=== PATIENT | male | born 1990 | race Caucasian/White ===

== ENCOUNTER 2020-10-01 13:49 | Emergency (ER) | payer SELFPAY ==
[~2020-10-01] VITALS: Ht 180.3 cm; Wt 59.7 kg
--- NOTE | 2020-10-01 14:09 | ED Integumentary General ---
General Chief Complaint: Skin/Wound Problems Stated Complaint: RASH Source: patient History of Present Illness Date Seen by Provider: Oct 01, 2020 Time Seen by Provider: 14:09 Initial Comments 30-year-old male presents with "rash" patient reports his been on and off for about a year. He reports he has little dark black spots near the base of his hair. He states he's been seen in the past and told that this was normal. He is been using her to wash his hands and his hands are very erythematous in his arms. He reports he has similar symptoms in his segura. Sometimes his headache is. Patient denies any systemic complaints. Allergies and Home Medications Allergies Coded Allergies: No Known Drug Allergies (Unverified , 10/01/20) Patient Home Medication List Home Medication List Reviewed: Yes Review of Systems Review of Systems Constitutional: no symptoms reported EENTM: no symptoms reported Respiratory: no symptoms reported Cardiovascular: no symptoms reported Gastrointestinal: no symptoms reported Genitourinary: no symptoms reported Musculoskeletal: no symptoms reported Skin: see HPI Psychiatric/Neurological: No Symptoms Reported Endocrine: No Symptoms Reported Past Yarhomi-Vhytgl-Xbcpql Hx Past Med/Social Hx: Reviewed Nursing Past Med/Soc Hx Patient Social History Recent Foreign Travel: No Contact w/Someone Who Travel: No Physical Exam Vital Signs Vital Signs - First Documented 10/01/20 14:20 Temp 36.9 Pulse 101 Resp 16 B/P (MAP) 129/93 (105) Pulse Ox 97 O2 Delivery Room Air Capillary Refill : General Appearance: WD/WN, no apparent distress Cardiovascular: normal peripheral pulses, regular rate, rhythm Respiratory: lungs clear, no respiratory distress Gastrointestinal: non tender, soft Skin: other (mild erythema on his forearms and hand) Skin Problem Location: other (normal exam outside of some dermatitis from excessive handwashing and harsh soap use) Progress/Results/Core Measures Results/Orders Vital Signs/I&O 10/01/20 14:20 Temp 36.9 Pulse 101 Resp 16 B/P (MAP) 129/93 (105) Pulse Ox 97 O2 Delivery Room Air Progress Progress Note : Progress Note Patient with no acute findings. He was concerned about normal skin findings. After I showed him that my hands have similar findings he did relaxed. I do suspect the patient may have some underlying undiagnosed schizophrenia since he is very anxious and paranoid. I discussed with him that he should go home and use some topical steroids and Benadryl along with some evi dish soap along with a good lotion to help his hands recover from the dermatitis in excess handwashing. Patient stable and being discharged Departure Impression Primary Impression: Dermatitis Disposition: 01 HOME, SELF-CARE Condition: Stable Departure-Patient Inst. Referrals: NO,LOCAL PHYSICIAN (PCP/Family) Primary Care Physician Patient Instructions: Dermatitis Add. Discharge Instructions: Benadryl topical cream to affected area as directed on package Hydrocortisone topical cream twice daily 5 days Wash her hands with Evi dish soap He is a good lotions such as Aveeno or similar lotion All discharge instructions reviewed with patient and/or family. Voiced understanding. EMILY GRACIA DO Oct 01, 2020 14:09
[2020-10-01 14:20] VITALS: BP 129/93
== END 2020-10-01 14:26 | disposition home or self-care (01) ==
LOC: ER FS 13:51
DX: L30.8 Other specified dermatitis (principal)
CPT/HCPCS: 99282

== ENCOUNTER 2021-05-25 20:27 | Emergency (ER) | payer SELFPAY ==
[~2021-05-25] VITALS: Ht 180.3 cm; Wt 64.1 kg
[2021-05-25 20:31] VITALS: BP 132/85
--- NOTE | 2021-05-25 20:34 | ED EENT ---
History of Present Illness General Stated Complaint: SKIN IRRITATION,TOOTH PAIN Source: patient Exam Limitations: no limitations History of Present Illness Date Seen by Provider: May 25, 2021 Time Seen by Provider: 20:34 Initial Comments 30 male presents with chronic skin condition has had for years. Does not have a primary care doctor as he states that he is exhausted trying to get answers. Has never seen a manager product marketing. States that he thinks he has a skin infection because when he put peroxide on his skin it bubbles up. Frequent dry skin, itchy skin. Also states that he needs an antibiotic so that he can have dental work done as the dentist said he needs to be on an antibiotic 1 week before removing a bad tooth. Denies swelling of his jaw or significant pain, fever or chills. Allergies and Home Medications Allergies Coded Allergies: No Known Drug Allergies (Unverified , 10/01/20) Home Medications Cephalexin 500 Mg Tablet, 500 MG PO TID Prescribed by: NICK SZYMANSKI on 05/25/212045 Triamcinolone Acetonide 15 Gm Cream..g., 30 GM TP BID Prescribed by: NICK SZYMANSKI on 05/25/212045 Patient Home Medication List Home Medication List Reviewed: Yes Review of Systems Review of Systems Constitutional: No fever, No malaise, No weakness Eyes: No Symptoms Reported Ears: No Symptoms Reported Nose: no symptoms reported Mouth: denies loose teeth, denies pain; other (bad tooth) Respiratory: no symptoms reported Skin: see HPI, pruritus (and dry skin) Past Fmuygpm-Oduwnr-Gspmkq Hx Past Med/Social Hx: Reviewed Nursing Past Med/Soc Hx Patient Social History Drug of Choice: Marijuana 2nd Hand Smoke Exposure: No Recent Hopitalizations: No Seasonal Allergies Seasonal Allergies: No Past Medical History Surgeries: No Respiratory: No Cardiac: No Neurological: No Genitourinary: No Gastrointestinal: No Musculoskeletal: Yes Arthritis Endocrine: No HEENT: No Cancer: No Psychosocial: No Integumentary: No Blood Disorders: No Physical Exam Vital Signs Vital Signs - First Documented 05/25/21 20:31 Temp 36.3 Pulse 82 Resp 14 B/P (MAP) 132/85 (101) Pulse Ox 99 O2 Delivery Room Air Height, Weight, BMI Height: '" Weight: lbs. oz. kg; 18.00 BMI Method: General Appearance: WD/WN, no apparent distress Mouth/Throat: pharynx normal; No mandibular swelling, No maxillary swelling, No pharynx swelling, No pharynx tenderness, No tongue swollen, No tonsillar exudate, No tonsillar swelling, No trismus, No uvula swelling, No voice changes; other (chronic dental caries without abscess) Neck: non-tender, supple Skin: No ecchymosis, No jaundice, No rash; other (chronic dry skin- b/l UE's. NO sign of infection ) Progress/Results/Core Measures Results/Orders Vital Signs/I&O 05/25/21 20:31 Temp 36.3 Pulse 82 Resp 14 B/P (MAP) 132/85 (101) Pulse Ox 99 O2 Delivery Room Air Progress Progress Note : Progress Note chronic skin "condition" that patient believes to be an "infection" that he has had for years. Has not recently seen a doctor and states that he has given up his attempts to get disability (because of his many chronic conditions, including...."3 different types of fibromyalgia") Strongly urged to re-establish a PCP for management of his chronic conditions Departure Impression Primary Impression: Chronic dermatitis Additional Impression: Dental caries Disposition: HOME, SELF-CARE Condition: Stable Departure-Patient Inst. Decision time for Depature: 20:43 Referrals: NO,LOCAL PHYSICIAN (PCP/Family) Primary Care Physician Patient Instructions: Dental Pain (DC), Eczema (Atopic Dermatitis) (DC) Add. Discharge Instructions: establish a Primary care doctor for management of your chronic medical conditions. See a dentist for dental repair Scripts Triamcinolone Acetonide (Triamcinolone Acetonide 0.5% Cream) 15 Gm Cream..g. 30 GM TP BID for Rash for 7 Days, #1 TUBE Prov: NICK SZYMANSKI DO 05/25/21 Cephalexin (Cephalexin) 500 Mg Tablet 500 MG PO TID, #15 TAB 0 Refills Prov: NICK SZYMANSKI DO 05/25/21 NICK SZYMANSKI DO May 25, 2021 20:34
[2021-05-25] MEDS ORDERED: CEPH500T PO (20:46)
[2021-05-25] MEDS ORDERED: TRIA15CR TP (20:46)
== END 2021-05-25 20:58 | disposition home or self-care (01) ==
LOC: EDUNIT# 20:27 → ER FS 20:29
DX: L30.9 Dermatitis, unspecified (principal); K02.9 Dental caries, unspecified
CPT/HCPCS: 99282

== ENCOUNTER 2021-08-19 18:07 | Emergency (ER) | payer SELFPAY ==
[~2021-08-19] VITALS: Ht 180.3 cm; Wt 64.1 kg
[~2021-08-19 18:07] MED LIST: CEPH500T PO; TRIA15CR TP
--- OUTSIDE RECORDS SUMMARY | 2021-08-19 18:13 | XMS REPORT | Clinical Summary ---
Author Author [facility] Organization [facility] Address Unknown Phone Unavailable Care Team Providers Care Costume Rental Clerk Name Role Phone Shalini Harvey RN Unavailable Unavailable Self, Referral PCP Unavailable Source Comments Some departments are not documenting in the electronic medical record. If you d o not see the information that you expected, contact Release of Information in [facility] [employer] Information Management department at [phone] for further assistan ce in locating additional records.[facility] Allergies No Known Active Allergies Medications End Date Status Medication Sig Dispensed Refills Start Date Active TRAMADOL HCL (TRAMADOL Take by 0 PO) mouth. Active ALPRAZOLAM (XANAX PO) Take by 0 mouth. 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 Blood Pressure - - Pulse 36.4 C (97.5 F) 01/09/2014 1:22 PM HUMAN RESOURCE ADVISER Temperature - - Respiratory Rate 99% 01/09/2014 1:22 PM HUMAN RESOURCE ADVISER Oxygen Saturation - - Inhaled Oxygen Concentration 53 kg (116 lb 13.5 oz) 01/09/2014 1:22 PM HUMAN RESOURCE ADVISER Weight - - Height - - Body Mass Index Plan of Treatment Health Maintenance Due Date Last Done Comments HIV SCREENING 2003 DTAP/TDAP VACCINES (1 - 2006 Tdap) HEPATITIS C SCREENING 2006 PHYSICAL (COMPREHENSIVE) 2006 EXAM INFLUENZA VACCINE 08/27/2021 Results Not on filefrom Last 3 Months 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
[2021-08-19] MEDS ORDERED: CETI10TA49 PO (18:21)
[2021-08-19] MEDS ORDERED: PRD50T PO (18:21)
--- NOTE | 2021-08-19 18:21 | ED Integumentary General ---
General Chief Complaint: Skin/Wound Problems Stated Complaint: ALL OVER BODY RASH History of Present Illness Date Seen by Provider: Aug 19, 2021 Time Seen by Provider: 18:19 Initial Comments 30 y/o presents w a skin rash that he has had for "years". Seen for the same, myself April of 2021, prior to that seen September 2020. Itcy rash, thinks he has bugs crawling out of skin and using "vice president and portfolio manager wipes" to treat it. Has not seen another physician or clinic for the chronic skin rash for years.....just comes to the ER occasionally as above. Allergies and Home Medications Allergies Coded Allergies: No Known Drug Allergies (Unverified , 10/01/20) Patient Home Medication List Home Medication List Reviewed: Yes Cephalexin (Cephalexin) 500 Mg Tablet, 500 MG PO TID Prescribed by: NICK SZYMANSKI on 05/25/212045 Cetirizine HCl (Zyrtec) 10 Mg Tablet, 10 MG PO DAILY Prescribed by: NICK SZYMANSKI on 08/19/211820 Prednisone (Prednisone) 50 Mg Tab, 50 MG PO DAILY Prescribed by: NICK SZYMANSKI on 08/19/211820 Triamcinolone Acetonide (Triamcinolone Acetonide 0.5% Cream) 15 Gm Cream..g., 30 GM TP BID Prescribed by: NICK SZYMANSKI on 05/25/212045 Review of Systems Review of Systems Constitutional: No fever, No malaise, No weakness EENTM: no symptoms reported Respiratory: no symptoms reported Skin: No change in color, No change in hair/nails, No lesions, No lumps; pruritus, rash Past Ubxcppd-Caodye-Xcvmmz Hx Patient Social History Tobacco Use?: Yes Seasonal Allergies Seasonal Allergies: No Past Medical History Surgeries: No Respiratory: No Cardiac: No Neurological: No Genitourinary: No Gastrointestinal: No Musculoskeletal: Yes Arthritis Endocrine: No HEENT: No Cancer: No Psychosocial: No Integumentary: No Blood Disorders: No Physical Exam Vital Signs Capillary Refill : General Appearance: WD/WN, no apparent distress Neurologic/Psychiatric: alert, oriented x 3 (anxious) Skin: other (erythematous, non-specific rash thighs.....most areas complaining of rash are just dry skin with no abnormality) Progress/Results/Core Measures Progress Progress Note : Progress Note Patient very high stress, anxious and pressured speech. Convinced that he has had an infestation the first time I saw him and was concerned of bugs underneath the skin. Patient habitually cleanses his skin with sanitary wipes, as he states it dries out his skin. He states it's the only thing that helps it go away, I asked him "if it makes it go away then what you have the rash". Patient agitated, didn't like questions or inquiry into the origins of his rash. Wants to know what is causing it. I suggested, probably because you're washing your skin with skin wipes which is irritating and likely causing dermatitis. He did not like this answer. Departure Impression Primary Impression: Chronic dermatitis Disposition: HOME, SELF-CARE Condition: Unchanged Departure-Patient Inst. Decision time for Depature: 18:20 Referrals: [facility],LOCAL PHYSICIAN (PCP) Primary Care Physician Patient Instructions: Contact Dermatitis (DC) Add. Discharge Instructions: establish care at the local [facility] for management of your chronic skin condition All discharge instructions reviewed with patient and/or family. Voiced understanding. Scripts Cetirizine HCl (Zyrtec) 10 Mg Tablet 10 MG PO DAILY, #30 TAB Prov: NICK SZYMANSKI DO 08/19/21 Prednisone (Prednisone) 50 Mg Tab 50 MG PO DAILY, #5 TAB Prov: NICK SZYMANSKI DO 08/19/21 NICK SZYMANSKI DO Aug 19, 2021 18:21
[2021-08-19 18:34] VITALS: BP 129/101
== END 2021-08-19 18:30 | disposition home or self-care (01) ==
LOC: EDUNIT# 18:07 → ER FS 18:08
DX: L30.9 Dermatitis, unspecified (principal)
CPT/HCPCS: 99281

== ENCOUNTER 2021-09-17 14:23 | Emergency (ER) | payer OTHER ==
[~2021-09-17] VITALS: Ht 180.3 cm; Wt 59.3 kg
[~2021-09-17 14:23] MED LIST changes: +CETI10TA49 PO; +PRD50T PO
--- NOTE | 2021-09-17 15:01 | ED General ---
General Chief Complaint: General Problems/Pain Stated Complaint: HERNIA Nursing Triage Note: PT AMBULATE TO ROOM FS02 FROM [facility] SKILLED NURSING WITH C/O LEFT TESTICLE PAIN. PT STATES THAT HE WAS TAKING A SHOWER LAST NIGHT AND NOTICED THAT HIS LEFT TESTICLE WAS SWOLLEN. Source of Information: Patient History of Present Illness Date Seen by Provider: Sep 17, 2021 Time Seen by Provider: 14:30 Initial Comments Patient is a 31-year-old inmate who presents with left testicular pain and tenderness since last evening at 10 PM. Denies trauma to this region. No redness swelling or erythema. Denies urethral drainage. No flank pain hematuria or dysuria. No history of kidney stones. No other acute symptoms or complaints. Timing/Duration: 12-24 Hours Severity: Moderate Modifying Factors: improves with Other Associated Systoms: Other Allergies and Home Medications Allergies Coded Allergies: No Known Drug Allergies (Unverified , 10/01/20) Patient Home Medication List Home Medication List Reviewed: Yes Cephalexin (Cephalexin) 500 Mg Tablet, 500 MG PO TID Prescribed by: NICK SZYMANSKI on 05/25/212045 Cetirizine HCl (Zyrtec) 10 Mg Tablet, 10 MG PO DAILY Prescribed by: NICK SZYMANSKI on 08/19/211820 Prednisone (Prednisone) 50 Mg Tab, 50 MG PO DAILY Prescribed by: NICK SZYMANSKI on 08/19/211820 Triamcinolone Acetonide (Triamcinolone Acetonide 0.5% Cream) 15 Gm Cream..g., 30 GM TP BID Prescribed by: NICK SZYMANSKI on 05/25/212045 Review of Systems Review of Systems Constitutional: no symptoms reported EENTM: no symptoms reported Respiratory: no symptoms reported Cardiovascular: see HPI Genitourinary: see HPI, other (Left testicular pain) Musculoskeletal: no symptoms reported Skin: no symptoms reported Past Napyrpt-Aqihfk-Tuvwtl Hx Patient Social History Tobacco Use?: Yes Tobacco type used: Cigarettes Smoking Status: Current Everyday Smoker Smokeless Tobacco Frequency: Never a User E-Cig or Vaping type used: Nicotine Use of E-Cig and/or Vaping Ajrun: Current Everyday User Substance use?: No Alcohol Use?: No Pt feels they are or have been: No Immunizations Up To Date First/Initial COVID19 Vaccinat: None Seasonal Allergies Seasonal Allergies: No Past Medical History Surgery/Hospitalization HX: Chronic Dermatitis Surgeries: No Respiratory: No Cardiac: No Neurological: No Genitourinary: No Gastrointestinal: No Musculoskeletal: Yes Arthritis Endocrine: No HEENT: No Cancer: No Psychosocial: No Integumentary: No Blood Disorders: No Physical Exam Vital Signs Vital Signs - First Documented 09/17/21 14:32 Temp 37.2 Pulse 89 Resp 18 B/P (MAP) 124/95 (105) O2 Delivery Room Air Capillary Refill : Less Than 3 Seconds Height, Weight, BMI Height: '" Weight: lbs. oz. kg; 18.00 BMI Method: General Appearance: No Apparent Distress, Anxious Eyes: Bilateral Eye Normal Inspection, Bilateral Eye PERRL, Bilateral Eye EOMI HEENT: PERRL/EOMI Respiratory: Lungs Clear Cardiovascular: Regular Rate, Rhythm Gastrointestinal: Non Tender, Soft, Tenderness (Left testicle), Other (Cremasteric reflexes intact, no testicular masses, pain swelling tenderness. No urethral discharge.) Back: Normal Inspection, No CVA Tenderness Neurologic/Psychiatric: Alert, Oriented x3 Focused Exam Sepsis Stage: Ruled Out Progress/Results/Core Measures Suspected Sepsis SIRS Temperature: Pulse: 89 Respiratory Rate: 18 Blood Pressure 124 /95 Mean: 105 Results/Orders Lab Results Laboratory Tests Test 09/17/21 15:58 Range/Units Urine Color YELLOW Urine Clarity CLEAR Urine pH 6.0 5-9 Urine Specific [place] 1.025 H 1.016-1.022 Urine Protein NEGATIVE NEGATIVE Urine Glucose (UA) NEGATIVE NEGATIVE Urine Ketones NEGATIVE NEGATIVE Urine Nitrite NEGATIVE NEGATIVE Urine Bilirubin NEGATIVE NEGATIVE Urine Urobilinogen 0.2 < = 1.0 MG/DL Urine Leukocyte Esterase NEGATIVE NEGATIVE Urine RBC (Auto) NEGATIVE NEGATIVE Urine RBC NONE /HPF Urine WBC RARE /HPF Urine Squamous Epithelial Cells RARE /HPF Urine Crystals NONE /LPF Urine Bacteria NEGATIVE /HPF Urine Casts NONE /LPF Urine Mucus MODERATE H /LPF Urine Culture Indicated NO My Orders Orders - ESTELA TOBAR DO Urinalysis (09/17/21 14:47) Us Scrotum (Testicle) [id number] (09/17/21 14:47) Ceftriaxone (Rocephin) (09/17/21 15:45) Lidocaine 1% Inj 20 Ml (Xylocaine 1% Inj (09/17/21 15:45) Azithromycin Tablet (Zithromax Tablet) (09/17/21 15:45) Vital Signs/I&O 09/17/21 14:32 Temp 37.2 Pulse 89 Resp 18 B/P (MAP) 124/95 (105) O2 Delivery Room Air Capillary Refill : Less Than 3 Seconds Blood Pressure Mean: 105 Departure Communication (Admissions) Testicular ultrasound: No acute disease per radiology report. Rocephin and Zithromax given. Patient instructed to follow-up with [facility]. Return precautions reviewed. Impression Primary Impression: Left testicular pain Disposition: HOME, SELF-CARE Condition: Stable Departure-Patient Inst. Decision time for Depature: 15:41 Referrals: NO,LOCAL PHYSICIAN (PCP/Family) Primary Care Physician Add. Discharge Instructions: You were evaluated in the emergency department for testicular pain and swelling. Please take ibuprofen for pain and follow-up with the [facility] next week. All discharge instructions reviewed with patient and/or family. Voiced understanding. ESTELA TOBAR DO Sep 17, 2021 15:01
--- NOTE | 2021-09-17 15:20 | Diagnostic Imaging Report ---
PROCEDURE: US Scrotum. TECHNIQUE: Multiple real-time grayscale images were obtained over the scrotum in various projections bilaterally. INDICATION: Testicular swelling. Right testicle measures 4.5 x 3.0 x 3.5 cm, left measures 4.7 x 3.5 x 2.3 cm. Both testes demonstrate homogeneous echotexture. No discrete testicular masses detected. There is blood flow to both testes. Epididymides are unremarkable bilaterally. No hydrocele is seen. IMPRESSION: No evidence of testicular mass or vascular compromise. Dictated by: Dictated on workstation # [id number]
[2021-09-17] MEDS ORDERED: AZITHROMYCIN 250 MG TAB (ZITHROMAX) PO ONE (15:45)
[2021-09-17] MEDS ORDERED: LIDOCAINE 1% INJ 20 ML 20 ML VIAL INJ ONE (15:45)
[2021-09-17] MEDS ORDERED: cefTRIAXone 250 MG/2.5 ML ML IM ONE (15:45)
[2021-09-17 16:02] VITALS: BP 134/79
[2021-09-17 16:04] LABS: BILIRUBIN,URINE NEGATIVE (NEGATIVE); CLARITY,URINE CLEAR; COLOR,URINE YELLOW; GLUCOSE, URINE (UA) NEGATIVE (NEGATIVE); KETONES,URINE NEGATIVE (NEGATIVE); LEUKOCYTE ESTERASE ,URINE NEGATIVE (NEGATIVE); NITRITE,URINE NEGATIVE (NEGATIVE); PROTEIN,URINE NEGATIVE (NEGATIVE)
[2021-09-17 16:11] LABS: BACTERIA,URINE NEGATIVE /HPF; SQUAMOUS EPITHELIAL CELL,UR RARE /HPF; WBC,URINE RARE /HPF
== END 2021-09-17 16:02 | disposition home or self-care (01) ==
LOC: EDUNIT# 14:23 → ER FS 14:24
DX: N50.812 Left testicular pain (principal); F17.210 Nicotine dependence, cigarettes, uncomplicated; Z79.52 Long term (current) use of systemic steroids
CPT/HCPCS: 76870; 81000; 96372

== ENCOUNTER 2021-09-21 23:47 | Emergency (ER) | payer OTHER ==
[~2021-09-21] VITALS: Ht 180.3 cm; Wt 59.5 kg
[2021-09-22] MEDS ORDERED: IBUPROFEN 600 MG (MOTRIN) TAB PO ONE (01:45)
--- NOTE | 2021-09-22 01:56 | ED Chest Pain ---
General Chief Complaint: Chest Wall Stated Complaint: CHEST PAIN Nursing Triage Note: Patient states that he has chest pain often. Patient states that this episode of chest pain began yesterday morning. Patient states the pain gets worse with palpation. Source: patient Exam Limitations: no limitations History of Present Illness Date Seen by Provider: Sep 22, 2021 Time Seen by Provider: 00:50 Initial Comments Patient is a 31-year-old incarcerated male who presents with recurrent chest wall pain for the past several years. The current episode of pain is left p arasternal started yesterday morning. Pain is worse with palpation arm movement and deep breathing. Denies fever occasional chills, nausea vomiting or sweats. No abdominal pain. No other acute symptoms or complaints. No current active drug use. No history of CAD, PE or Marfan syndrome. History is obtained from the patient. 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 Allergies and Home Medications Allergies Coded Allergies: No Known Drug Allergies (Unverified , 10/01/20) Patient Home Medication List Home Medication List Reviewed: Yes Cephalexin (Cephalexin) 500 Mg Tablet, 500 MG PO TID Prescribed by: NICK SZYMANSKI on 05/25/212045 Cetirizine HCl (Zyrtec) 10 Mg Tablet, 10 MG PO DAILY Prescribed by: NICK SZYMANSKI on 08/19/211820 Prednisone (Prednisone) 50 Mg Tab, 50 MG PO DAILY Prescribed by: NICK SZYMANSKI on 08/19/211820 Triamcinolone Acetonide (Triamcinolone Acetonide 0.5% Cream) 15 Gm Cream..g., 30 GM TP BID Prescribed by: NICK SZYMANSKI on 05/25/212045 Review of Systems Review of Systems Constitutional: see HPI EENTM: See HPI Respiratory: See HPI Cardiovascular: See HPI Gastrointestinal: See HPI Genitourinary: See HPI Musculoskeletal: see HPI Skin: see HPI Psychiatric/Neurological: See HPI Endocrine: See HPI Hematologic/Lymphatic: See HPI All Other Systems Reviewed Negative Unless Noted: Yes Past Uliomxk-Yyimap-Jxopiq Hx Patient Social History Tobacco Use?: Yes Substance use?: No Alcohol Use?: No Pt feels they are or have been: No Immunizations Up To Date First/Initial COVID19 Vaccinat: None Seasonal Allergies Seasonal Allergies: No Past Medical History Surgery/Hospitalization HX: Chronic Dermatitis Surgeries: No Respiratory: No Cardiac: No Neurological: No Genitourinary: No Gastrointestinal: No Musculoskeletal: Yes Arthritis Endocrine: No HEENT: No Cancer: No Psychosocial: No Integumentary: No Blood Disorders: No Physical Exam Vital Signs Vital Signs - First Documented 09/21/21 23:54 Temp 37.0 Pulse 85 Resp 16 B/P (MAP) 138/98 (111) Pulse Ox 97 O2 Delivery Room Air Capillary Refill : Less Than 3 Seconds Height, Weight, BMI Height: '" Weight: lbs. oz. kg; 18.00 BMI Method: General Appearance: No Apparent Distress, WD/WN, Anxious HEENT: PERRL/EOMI, TMs Normal, Pharynx Normal Neck: Full Range of Motion, Normal Inspection, Supple Respiratory: Chest Non Tender, Lungs Clear Cardiovascular: Regular Rate, Rhythm, No Edema, Other (Reproducible chest wall pain) Gastrointestinal: Non Tender, Soft Neurologic/Psychiatric: Alert, Oriented x3, No Motor/Sensory Deficits, vice president investor relations II- XII Norm as Tested Skin: Normal Color, Warm/Dry Focused Exam Sepsis Stage: Ruled Out Progress/Results/Core Measures Results/Orders My Orders Orders - ESTELA TOBAR DO Ekg-Prn For Chest Pain Or Rhyt (09/22/21 00:09) Chest 1 View Ap/Pa Only (09/22/21 00:09) Ibuprofen Tablet (Motrin Tablet) (09/22/21 01:45) Vital Signs/I&O 09/21/21 23:54 Temp 37.0 Pulse 85 Resp 16 B/P (MAP) 138/98 (111) Pulse Ox 97 O2 Delivery Room Air Blood Pressure Mean: 111 Departure Communication (Admissions) EKG: Normal sinus rhythm, no acute ST-T wave changes. Chest x-ray: No acute cardiopulmonary disease on preliminary ED review. Reproducible musculoskeletal chest wall pain. Chest x-ray, EKG reassuring. Ibuprofen given. [facility]. Discharge instructions reviewed with patient and loan officer prior to departure. Impression Primary Impression: Chest wall pain Disposition: HOME, SELF-CARE Condition: Stable Departure-Patient Inst. Decision time for Depature: 01:56 Referrals: NO,LOCAL PHYSICIAN (PCP/Family) Primary Care Physician Patient Instructions: Costochondritis Add. Discharge Instructions: You were evaluated in the emergency department for chest wall pain. EKG and chest x-ray were performed and are nondiagnostic. The exact cause of your symptoms has not been determined. Please take ibuprofen as needed for pain and follow-up with [facility]. All discharge instructions reviewed with patient and/or family. Voiced understanding. ESTELA TOBAR DO Sep 22, 2021 01:56
[2021-09-22 02:00] VITALS: BP 126/86
--- NOTE | 2021-09-22 07:03 | Diagnostic Imaging Report ---
Indication: Chest pain. FINDINGS: Portable chest. The lungs are well-aerated and clear. There is no air-trapping. The heart is not enlarged. No pulmonary edema or hilar adenopathy. No pneumothorax or pleural effusion. No bony abnormalities. IMPRESSION: Normal portable chest. Dictated by: Dictated on workstation # [id number]
== END 2021-09-22 02:00 | disposition home or self-care (01) ==
LOC: EDUNIT# 23:47 → ER FS 23:50
DX: R07.89 Other chest pain (principal); Z72.0 Tobacco use; Z79.52 Long term (current) use of systemic steroids
CPT/HCPCS: 71045; 93005